=== PATIENT | male | born 1970 | race Two or more races ===

== ENCOUNTER 2017-04-21 17:11 | Emergency (ER) | payer OTHER ==
[~2017-04-21] VITALS: Ht 162.6 cm; Wt 82.6 kg
[2017-04-21 17:11] VITALS: BP 137/85
[2017-04-21] MEDS ORDERED: TDAP [DIPH/PERTUSSIS/TET] 0.5 ML VIAL IM ONE ×2 (18:00→18:15)
--- NOTE | 2017-04-21 19:06 | NUR ---
FAXED ANIMAL BITE REPORTING FORM TO [phone]
== END 2017-04-21 18:24 | disposition home or self-care (01) ==
LOC: ER 17:13
DX: S71.151A Open bite, right thigh, initial encounter (principal); E11.9 Type 2 diabetes mellitus without complications; W54.0XXA Bitten by dog, initial encounter; Y93.89 Activity, other specified; Y92.89 Other specified places as the place of occurrence of the external cause; Y99.8 Other external cause status
CPT/HCPCS: 90471; 90715; 99283; A4606; Z7610

== ENCOUNTER 2017-11-17 13:37 | Emergency (ER) | payer MEDICAID ==
[~2017-11-17] VITALS: Ht 167.6 cm; Wt 79.4 kg
[2017-11-17 13:46] VITALS: BP 119/77
== END 2017-11-17 14:29 | disposition home or self-care (01) ==
LOC: ER 13:41
DX: J06.9 Acute upper respiratory infection, unspecified (principal); E11.9 Type 2 diabetes mellitus without complications
CPT/HCPCS: 99283; A4606; Z7610